=== PATIENT | female | born 1930 | race African-American/Black ===

== ENCOUNTER 2016-06-14 07:53 | Emergency (ER) | payer MEDICAID, MEDICARE ==
[2016-06-14 08:30] LABS: #Lymphocytes 1.1 thou/uL (1.20-3.40); #Monocytes 0.5 thou/uL (0.11-0.59); #Neutrophils 3.3 thou/uL (1.40-6.50); %Basophils 0.8 % (0.0-1.0); %Eosinophils 0.8 % (0.0-10.0); %Lymphocytes 21.7 % (21.0-51.0); %Monocytes 10.1 % (0.0-10.0); %Neutrophils 66.5 % (42.0-75.0); Hemoglobin 10.4 g/dL (12.0-16.0); Mean Corpuscular Hemoglobin 29.6 pg (27.0-31.0); Mean Corpuscular Volume 92.5 fl (81.0-99.0); Platelet Count 238 thou/uL (130-400); RBC Distribution Width 12.5 % (11.5-14.5); Red Blood Cell (RBC) Count 3.52 mill/uL (4.20-5.40)
--- NOTE | 2016-06-14 08:36 | RAD ---
UPRIGHT PORTABLE CHEST ONE VIEW: History: 85-year-old female with chest pain. Comparison: 03-05-14 FINDINGS: Atherosclerosis of the aorta. Monitor leads overlie the chest. No confluent pneumonia, overt edema , or pleural effusion. IMPRESSION: No acute intrathoracic disease. No evidence for pneumonia. Mild chronic lung changes. POS: [facility]
[2016-06-14 08:46] LABS: ALT (SGPT) 8 U/L (0-55); AST (SGOT) 15 U/L (5-34); Alkaline Phosphatase 53 U/L (40-150); Anion Gap 15 mmol/L (10-20); BUN (Urea Nitrogen) 7 mg/dL (9.8-20.1); Bilirubin, Total 0.8 mg/dL (0.2-1.2); Calc. Creatinine Clearance 0 mL/min (70-130); Calcium 9.5 mg/dL (7.8-10.44); Carbon Dioxide 26 mmol/L (23-31); Chloride 100 mmol/L (98-107); Estimated GFR-MDRD Greater than 90; Globulin 3.2 g/dL (2.4-3.5); Glucose 98 mg/dL (83-110); Potassium 3.4 mmol/L (3.5-5.1); Protein, Total 7.2 g/dL (5.8-8.1); Sodium 138 mmol/L (136-145)
[2016-06-14] MEDS ORDERED: Pantoprazole 40 MG VIAL ONE (08:47)
[2016-06-14 08:50] LABS: CKMB 1.5 ng/mL (0-6.6); Troponin I Less than 0.010 ng/mL (< 0.028)
== END 2016-06-14 10:10 | disposition short-term general hospital (02) ==
LOC: MADERS 07:53
DX: K92.2 Gastrointestinal hemorrhage, unspecified (principal); Z79.82 Long term (current) use of aspirin; Z79.899 Other long term (current) drug therapy
CPT/HCPCS: 71010; 80053; 82272; 82553; 84484; 85025; 93005; 96374; C9113

== ENCOUNTER 2016-11-13 15:01 | Outpatient (CLI) | payer MEDICARE ==
--- NOTE | 2016-11-13 16:01 | RAD ---
RADIOGRAPH RIGHT KNEE 4 VIEWS: Date: 11/13/16 HISTORY: 86-year-old female with spontaneous, nontraumatic acute right knee pain for 4 days. COMPARISON: None available. FINDINGS: There is edema in Hoffa's fat pad. There is suprapatellar anterior soft tissue edema. There is diffu se osteopenia. Tiny osteophytes without joint space narrowing at the patellofemoral, medial, and lat eral compartments (mild tricompartment osteoarthrosis). Heavy atherosclerotic calcification of the p opliteal artery and its branches. Diffuse osteopenia. No evidence of acute fracture, destructive oss eous lesion, or periosteal elevation. IMPRESSION: 1. Soft tissue edema. 2. Osteopenia. 3. Atherosclerotic disease. POS: [facility]
== END 2016-11-13 15:02 | disposition home or self-care (01) ==
LOC: MADRAD 15:01
PROVIDERS: ATTEND General Practice
DX: M25.561 Pain in right knee (principal); R60.0 Localized edema; I70.90 Unspecified atherosclerosis

== ENCOUNTER 2017-08-15 12:40 | Emergency (ER) | payer MEDICARE ==
[~2017-08-15 12:40] MED LIST: Donnatal Elixir 16.2 MG/5 ML UDCUP ONE
[2017-08-15] MEDS ORDERED: Aspirin 325 MG TAB ONE (13:12)
[2017-08-15 13:18] LABS: Prothrombin Time 13.3 SEC (12.0-14.7)
[2017-08-15 13:21] LABS: Eosinophils 1 % (0-10); Hemoglobin 10.5 g/dL (12.0-16.0); Lymphocytes 44 % (21-51); MDiff Complete? YES; Mean Corpuscular HGB CONC 34.3 g/dL (32.0-36.0); Mean Corpuscular Hemoglobin 31.1 pg (27.0-31.0); Mean Corpuscular Volume 90.6 fl (81.0-99.0); Mean Platelet Volume 8.1 fL (7.4-10.4); Monocytes 5 % (0-10); Neutrophil 50 % (42-75); PLT Morphology Comment Appears Adequate; Platelet Count 178 thou/uL (130-400); RBC Distribution Width 11.9 % (11.5-14.5); Red Blood Cell (RBC) Count 3.37 mill/uL (4.20-5.40); White Blood Cell (WBC) Count 4.9 thou/uL (4.8-10.8)
[2017-08-15 13:22] LABS: PTT 20.2 SEC (22.9-36.1)
[2017-08-15 13:30] LABS: ALT (SGPT) Less than 7 U/L (8-55); AST (SGOT) 20 U/L (5-34); Albumin 4.1 g/dL (3.4-4.8); Alkaline Phosphatase 49 U/L (40-150); Anion Gap 16 mmol/L (10-20); BUN (Urea Nitrogen) 7 mg/dL (9.8-20.1); Bilirubin, Total 0.9 mg/dL (0.2-1.2); CK (CPK) 82 U/L (29-168); Calc. Creatinine Clearance 0 mL/min (70-130); Calcium 9.4 mg/dL (7.8-10.44); Carbon Dioxide 22 mmol/L (23-31); Chloride 104 mmol/L (98-107); Estimated GFR-MDRD Greater than 90; Globulin 3.4 g/dL (2.4-3.5); Glucose 109 mg/dL (83-110); Magnesium 2.6 mg/dL (1.6-2.6); Potassium 3.9 mmol/L (3.5-5.1); Protein, Total 7.5 g/dL (6.0-8.3); Sodium 138 mmol/L (136-145)
[2017-08-15 13:32] LABS: CKMB 0.9 ng/mL (0-6.6); Troponin I Less than 0.010 ng/mL (< 0.028)
--- NOTE | 2017-08-15 13:49 | RAD ---
CHEST ONE VIEW: History: Chest pain. Comparison: 06-14-16 FINDINGS: Cardiac silhouette and pulmonary vasculature are unremarkable. Mediastinum is midline with aortic abhinav cification. Lungs remain hyperinflated with mild linear scarring at the right lung base. No lobar con solidation or evidence of pneumothorax. personnel monitor leads overlie the chest. IMPRESSION: 1. COPD. 2. Atherosclerosis. POS: [facility]
[2017-08-15] MEDS ORDERED: Donnatal Elixir 16.2 MG/5 ML UDCUP ONE (13:51)
[2017-08-15] MEDS ORDERED: Mag-Al Plus 1200 MG/1200 MG/120 MG/30 ML UDCUP ONE (13:52)
[2017-08-15] MEDS ORDERED: Lidocaine Viscous Sol 2% 15 ml UD Cup ONE (13:52)
== END 2017-08-15 14:53 | disposition home or self-care (01) ==
LOC: MADERS 12:40
DX: K21.0 Gastro-esophageal reflux disease with esophagitis (principal); I10 Essential (primary) hypertension
CPT/HCPCS: 71045; 80053; 82553; 83735; 83880; 84484; 85025; 85610; 85730; 93005; 94760

== ENCOUNTER 2017-09-23 00:45 | Emergency (ER) | payer MEDICARE, MEDICAID ==
[2017-09-23 01:24] LABS: Bilirubin Negative (Negative); Blood, Urine Negative (Negative); Glucose, Urine (Dipstick) Negative (Negative); Leukocyte Small (Negative); Nitrite Negative (Negative); Protein, Urine (Dipstick) Negative (Neg-Trace); Urobilinogen 0.2 mg/dL (0.2-1.0); pH, Urine 5.5 (5.0-9.0)
[2017-09-23 01:29] LABS: #Eosinphils 0.1 thou/uL (0.0-0.7); #Lymphocytes 1.4 thou/uL (1.20-3.40); #Monocytes 0.4 thou/uL (0.11-0.59); #Neutrophils 2.5 thou/uL (1.40-6.50); %Eosinophils 1.5 % (0.0-10.0); %Lymphocytes 31.9 % (21.0-51.0); %Monocytes 9.6 % (0.0-10.0); Hemoglobin 9.4 g/dL (12.0-16.0); Mean Corpuscular HGB CONC 32.9 g/dL (32.0-36.0); Mean Corpuscular Hemoglobin 29.8 pg (27.0-31.0); Mean Corpuscular Volume 90.8 fl (81.0-99.0); Mean Platelet Volume 7.3 fL (7.4-10.4); Platelet Count 284 thou/uL (130-400); RBC Distribution Width 12.6 % (11.5-14.5); Red Blood Cell (RBC) Count 3.16 mill/uL (4.20-5.40); White Blood Cell (WBC) Count 4.5 thou/uL (4.8-10.8)
[2017-09-23 01:32] LABS: PTT 32.6 SEC (22.9-36.1); Prothrombin Time 13.6 SEC (12.0-14.7)
[2017-09-23 01:34] LABS: Clarity Hazy (Clear)
[2017-09-23 01:35] LABS: Bacteria/HPF Rare-Few HPF (None Seen); RBC/HPF 0-3 HPF (0-3); Squamous Epithelial 0-3 HPF (0-3)
[2017-09-23 01:42] LABS: ALT (SGPT) Less than 7 U/L (8-55); AST (SGOT) 13 U/L (5-34); Albumin 3.9 g/dL (3.4-4.8); Alkaline Phosphatase 51 U/L (40-150); Anion Gap 15 mmol/L (10-20); BUN (Urea Nitrogen) 13 mg/dL (9.8-20.1); Calc. Creatinine Clearance 0 mL/min (70-130); Calcium 9.5 mg/dL (7.8-10.44); Carbon Dioxide 25 mmol/L (23-31); Chloride 105 mmol/L (98-107); Estimated GFR-MDRD 62; Globulin 3.8 g/dL (2.4-3.5); Glucose 93 mg/dL (83-110); Lipase 42 U/L (8-78); Potassium 3.5 mmol/L (3.5-5.1); Protein, Total 7.7 g/dL (6.0-8.3); Sodium 141 mmol/L (136-145)
[2017-09-23 01:44] LABS: CKMB 0.7 ng/mL (0-6.6); Troponin I Less than 0.010 ng/mL (< 0.028)
[2017-09-23] MEDS ORDERED: Cephalexin 500 MG CAP ONE (02:12)
--- NOTE | 2017-09-23 09:20 | RAD ---
CHEST 1 VIEW: COMPARISON: 08/15/17. HISTORY: Pain. FINDINGS: Atherosclerosis of the aorta. Normal cardiac silhouette. The pulmonary vessels and hilum are normal . Chronic changes of the lung parenchyma. No consolidation or mass. No pleural effusion or pneumo thorax. IMPRESSION: 1. Atherosclerosis. 2. Chronic changes. No acute process. POS: [facility]
== END 2017-09-23 03:10 | disposition home or self-care (01) ==
LOC: MADERS 00:45
DX: N30.00 Acute cystitis without hematuria (principal); R07.81 Pleurodynia; I10 Essential (primary) hypertension; M19.90 Unspecified osteoarthritis, unspecified site
CPT/HCPCS: 36415; 71045; 80053; 81003; 81015; 82274; 82553; 83605; 83690; 83880; 84484; 85025; 85610; 85730; 87086; 93005; 94760

== ENCOUNTER 2017-12-21 10:25 | Emergency (ER) | payer MEDICARE, OTHER ==
[2017-12-21] MEDS ORDERED: Metoprolol Tartrate 5 MG/5 ML VIAL ONE (10:55)
[2017-12-21] MEDS ORDERED: Mag-Al Plus 1200 MG/1200 MG/120 MG/30 ML UDCUP ONE (10:55)
[2017-12-21] MEDS ORDERED: Lidocaine 1% 20 ML MDV ONE (10:55)
[2017-12-21] MEDS ORDERED: Lidocaine Viscous Sol 2% 15 ml UD Cup ONE (10:55)
[2017-12-21 11:15] LABS: #Eosinphils 0.1 thou/uL (0.0-0.7); #Lymphocytes 1.4 thou/uL (1.20-3.40); #Monocytes 0.5 thou/uL (0.11-0.59); #Neutrophils 3.1 thou/uL (1.40-6.50); %Eosinophils 1.1 % (0.0-10.0); %Lymphocytes 28.5 % (21.0-51.0); %Neutrophils 60.5 % (42.0-75.0); Hemoglobin 9.9 g/dL (12.0-16.0); Mean Corpuscular HGB CONC 31.9 g/dL (32.0-36.0); Mean Corpuscular Volume 90.9 fL (78.0-98.0); Mean Platelet Volume 9.2 fL (7.4-10.4); Platelet Count 189 thou/uL (130-400); RBC Distribution Width 12.6 % (11.5-14.5); Red Blood Cell (RBC) Count 3.42 mill/uL (4.20-5.40); White Blood Cell (WBC) Count 5.1 thou/uL (4.8-10.8)
--- NOTE | 2017-12-21 11:23 | RAD ---
PORTABLE CHEST: HISTORY: Chest pain. COMPARISON: 09/23/17. FINDINGS: The lungs appear clear of infiltrate. No evidence of vascular congestion or edema. Heart size is wi thin normal range and stable. Aortic calcification again noted. Mild stranding in the right lung base is stable. IMPRESSION: No acute process. No significant interval change noted. POS: [facility]
[2017-12-21 11:27] LABS: ALT (SGPT) Less than 7 U/L (8-55); AST (SGOT) 13 U/L (5-34); Albumin 4.1 g/dL (3.4-4.8); Alkaline Phosphatase 46 U/L (40-150); Anion Gap 14 mmol/L (10-20); BUN (Urea Nitrogen) 14 mg/dL (9.8-20.1); Calc. Creatinine Clearance 0 mL/min (70-130); Calcium 9.5 mg/dL (7.8-10.44); Carbon Dioxide 24 mmol/L (23-31); Chloride 106 mmol/L (98-107); Estimated GFR-MDRD 82; Globulin 3.3 g/dL (2.4-3.5); Glucose 99 mg/dL (83-110); Potassium 4.1 mmol/L (3.5-5.1); Protein, Total 7.4 g/dL (6.0-8.3); Sodium 140 mmol/L (136-145)
[2017-12-21 11:29] LABS: CKMB 0.8 ng/mL (0-6.6); Troponin I Less than 0.010 ng/mL (< 0.028)
== END 2017-12-21 12:40 | disposition short-term general hospital (02) ==
LOC: MADERS 10:25
DX: R07.9 Chest pain, unspecified (principal); E78.5 Hyperlipidemia, unspecified; I10 Essential (primary) hypertension; M19.90 Unspecified osteoarthritis, unspecified site; Z79.899 Other long term (current) drug therapy
CPT/HCPCS: 71045; 80053; 82553; 83880; 84484; 85025; 93005; 94760; 96374; J2001

== ENCOUNTER 2018-07-16 15:42 | Emergency (ER) | payer MEDICARE, MEDICAID, OTHER ==
[2018-07-16 16:30] LABS: #Lymphocytes 1.5 thou/uL (1.20-3.40); #Monocytes 0.6 thou/uL (0.11-0.59); #Neutrophils 4.1 thou/uL (1.40-6.50); %Basophils 0.7 % (0.0-1.0); %Eosinophils 0.6 % (0.0-10.0); %Lymphocytes 23.6 % (21.0-51.0); %Monocytes 9.7 % (0.0-10.0); %Neutrophils 65.4 % (42.0-75.0); Hemoglobin 10.1 g/dL (12.0-16.0); Mean Corpuscular HGB CONC 30.7 g/dL (32.0-36.0); Mean Corpuscular Hemoglobin 29.2 pg (27.0-31.0); Mean Corpuscular Volume 95.2 fL (78.0-98.0); Mean Platelet Volume 8.3 fL (7.4-10.4); Platelet Count 207 thou/uL (130-400); RBC Distribution Width 12.9 % (11.5-14.5); Red Blood Cell (RBC) Count 3.46 mill/uL (4.20-5.40); White Blood Cell (WBC) Count 6.3 thou/uL (4.8-10.8)
[2018-07-16 16:30] LABS: Bilirubin Negative (Negative); Blood, Urine Small (Negative); Clarity Hazy (Clear); Glucose, Urine (Dipstick) Negative (Negative); Leukocyte Trace (Negative); Nitrite Negative (Negative); Protein, Urine (Dipstick) Negative (Neg-Trace); Specific Gravity, Urine 1.015 (1.005-1.030); Urobilinogen 0.2 mg/dL (0.2-1.0); pH, Urine 5.5 (5.0-9.0)
[2018-07-16 16:36] LABS: Crystals/HPF 1+ URIC ACID HPF (Negative); RBC/HPF 0-3 HPF (0-3); Transitional Epithelial 0-3 HPF (0-3); Yeast-All Forms 1+ HPF (None Seen)
[2018-07-16 16:49] LABS: ALT (SGPT) 7 U/L (8-55); AST (SGOT) 17 U/L (5-34); Albumin 4.3 g/dL (3.4-4.8); Alkaline Phosphatase 56 U/L (40-150); Anion Gap 14 mmol/L (10-20); BUN (Urea Nitrogen) 16 mg/dL (9.8-20.1); Bilirubin, Total 0.5 mg/dL (0.2-1.2); Calc. Creatinine Clearance 0 mL/min (70-130); Calcium 9.5 mg/dL (7.8-10.44); Carbon Dioxide 24 mmol/L (23-31); Chloride 105 mmol/L (98-107); Estimated GFR-MDRD 69; Globulin 3.3 g/dL (2.4-3.5); Glucose 120 mg/dL (83-110); Lipase 55 U/L (8-78); Potassium 3.5 mmol/L (3.5-5.1); Protein, Total 7.6 g/dL (6.0-8.3); Sodium 139 mmol/L (136-145)
--- NOTE | 2018-07-16 17:21 | RAD ---
CHEST 1 VIEW: Date: 07/16/18 HISTORY: Dyspnea. COMPARISON: Radiograph dated 12/21/17. FINDINGS: Lungs are hyperinflated. Scarring in lung bases. No pneumothorax. No acute osseous abnormality. Cardiac silhouette and mediastinal contours are similar. Moderate vascu lar calcifications. IMPRESSION: No acute abnormality. POS: [facility]
--- NOTE | 2018-07-16 17:29 | CT ---
CT ABDOMEN AND PELVIS WITHOUT CONTRAST: Date: 07/16/18 HISTORY: Abdominal pain. COMPARISON: None. FINDINGS: Lung bases are clear. No pericardial effusion. There are calcified right infrahilar lymph nodes. The aorta is tortuous. Dense aortic calcifications. Incompletely evaluated, there appears to be a cystic mass in the right adnexa measuring up to 4.1 cm. No dilated loops of large or small bowel. Bones are osteopenic. Multilevel degenerative disc space height loss. No acute fracture is appreciate d. No free intraperitoneal gas or fluid. No significant pericholecystic fluid. Noncontrast evaluation of the spleen is unremarkable. Small sliding hiatal hernia. Cyst inferior pole left kidney measures up to 4.5 cm. There is no significant hydroureteronephrosis o r nephroureterolithiasis. No secondary evidence of a recently passed stone. IMPRESSION: 1. Within the limits of this examination, no acute intra-abdominal abnormality. 2. 4.1 cm cystic structure in the right adnexa, concerning for malignant process in a patient of thi s age. Nonemergent [employer] consultation recommended on an outpatient basis. 3. No nephroureterolithiasis or hydroureteronephrosis. No secondary evidence of a recently passed st one. 4. Advanced vascular calcifications of the aorta with tortuosity and low grade ectasia. 5. No free intraperitoneal gas or fluid. 6. Mild prominence of possibly the common bile duct with possibly low grade intrahepatic biliary dil atation. Ultrasound may be beneficial if clinically. POS: [facility]
== END 2018-07-16 18:10 | disposition home or self-care (01) ==
LOC: MADERS 15:42
DX: R10.9 Unspecified abdominal pain (principal); I10 Essential (primary) hypertension; Z79.899 Other long term (current) drug therapy; Z79.82 Long term (current) use of aspirin
CPT/HCPCS: 71045; 74176; 80053; 81003; 81015; 83605; 83690; 84484; 85025; 93005